=== PATIENT | female | born 1985 | race Caucasian/White ===

== ENCOUNTER 2022-01-15 11:14 | Emergency (ER) | payer OTHER, SELFPAY ==
[2022-01-15 11:24] VITALS: BP 123/77; PULSE 85; RESP 16; TEMP 36.9; O2SAT 100
--- NOTE | 2022-01-15 11:45 | ED.GENADULT ---
HPI - General Adult General Chief complaint: Skin/Abscess/Foreign Body Stated complaint: Nose Irritation Source: patient Mode of arrival: ambulatory Limitations: no limitations History of Present Illness HPI narrative: Patient presents for evaluation of irritation and swelling to the nasal mucosa of left nare. She states that over the last month she has had some rhinorrhea. She attributed this to allergies. Over the past few days she has noted swelling, discomfort and irritation to left nasal mucosa. She has a history of acne for which she takes a retinol product and dapsone. She states she had a MRSA infection in the remote past. No fever, chills, nausea, vomiting. Related Data Home Medications Medication Instructions Recorded Confirmed valacyclovir 1 gram tablet 1,000 mg PO DAILY 01/15/22 01/15/22 Allergies Allergy/AdvReac Type Severity Reaction Status Date / Time No Known Allergies Allergy Verified 01/15/22 11:20 Review of Systems Review of Systems: CONSTITUTIONAL: Denies fever, chills, or sweats. EYES: Denies visual changes, redness, or discharge. ENT: Reports swelling and discomfort to left nasal mucosa. Reports rhinorrhea. Denies congestion, sore throat, or otalgia. CARDIOVASCULAR: Denies chest pain, palpitations, or edema. RESPIRATORY: Denies cough or dyspnea. GASTROINTESTINAL: Denies abdominal pain, nausea, vomiting, or diarrhea. GENITOURINARY: Denies dysuria or hematuria. SKIN: Denies rash or itching. MUSCULOSKELETAL: Denies back pain, joint pain, or myalgia. NEUROLOGIC: Denies headache, numbness, dizziness, or weakness. PSYCHIATRIC: Denies anxiety or depression. [facility] Past Medical History Medical History Acne Surgical History Surgical History History of Family History Family History Mother Family history non-contributory Social History Social History Substance use: never Living arrangements: with family Gender identity (if verbalized by the patient): Female Sexual Orientation (if Verbalized by the Patient): Straight or Heterosexual Spiritual care concerns: No Exam Narrative: GENERAL: Well-appearing, well-nourished, and in no acute distress. HEAD: Normocephalic, atraumatic. EYES: PERRLA and EOMI. ENT: Left nasal turbinate swelling and erythema with clear rhinorrhea. No epistaxis. Mucous membranes moist. Oropharynx without tonsillar hypertrophy exudate or other lesions. Bilateral TMs pearly [place]ton nonbulging NECK: Supple. No adenopathy or masses. No carotid bruits or JVD CHEST: Clear to auscultation. No respiratory distress. No wheezes rales or rhonchi HEART: Regular rate and rhythm. No murmur heard. Normal peripheral pulses. ABDOMEN: Soft, nontender, nondistended, normal active bowel sounds. EXTREMITIES: Normal range of motion. No edema. SKIN: Warm, dry, no rash. NEURO: No focal deficits. Alert and oriented x3. PSYCH: Normal mood and affect. Course Course Emergency Course: This is a 36-year-old female who presented for evaluation of left nasal mucosal swelling, irritation and discomfort. Will tx with mupirocin given hx of MRSA. Change oral therapy from dapsone to doxycycline for time being. May resume dapsone upon completion of doxy. Follow-up outpatient for further evaluation and treatment and return for worsening symptoms. Patient in agreement with plan of care Level of Care: Express Care Visit Vital Signs Vital signs: Vital Signs Temperature 36.9 C 01/15/22 11:24 Pulse Rate 85 01/15/22 11:24 Respiratory Rate 16 01/15/22 11:24 Blood Pressure 123/77 01/15/22 11:24 Pulse Oximetry 100 01/15/22 11:24 Oxygen Delivery Room Air 01/15/22 11:24 Temperature 36.9 C 01/15/22 11:24 Pulse Rate 85
== END 2022-01-15 11:46 | disposition home or self-care (01) ==
PROVIDERS: Emergency Provider Nurse Practitioner
DX: L73.9 Follicular disorder, unspecified (principal); Z86.14 Personal history of Methicillin resistant Staphylococcus aureus infection; Z87.2 Personal history of diseases of the skin and subcutaneous tissue
CPT/HCPCS: 99203; G0463

== ENCOUNTER 2025-04-06 18:01 | Emergency (ER) | payer OTHER, SELFPAY ==
--- NOTE | ~2025-04-06 | CT_ITS ---
EXAMINATION: CT abdomen pelvis w con DATE: 04/06/2025 23:30 INDICATION: Abdominal pain, bloody diarrhea. C. difficile infection. TECHNIQUE: Computed tomography (CT) of the abdomen and pelvis was performed with 100 cc Omnipaque 350 intravenous contrast. The dose-length product was 175.34 mGy-cm. Automated exposure control and iterative reconstruction technique were employed. COMPARISON: None. FINDINGS: Heart size normal. No significant pleural or pericardial effusion. Fatty infiltration of the liver. The spleen, pancreas, adrenal glands and kidneys are unremarkable. Gallbladder is present. No significant vascular abnormality. No lymphadenopathy. There is extensive mucosal thickening of the colon, predominantly affecting the transverse, descending, sigmoid colon and rectum. Trace free fluid in the pelvis. No lymphadenopathy. No acute osseous abnormality. IMPRESSION: 1. Moderate mucosal thickening of the colon, consistent with colitis. Findings compatible with known C. Difficile infection. Reviewed, dictated and finalized at location O.
[2025-04-06 18:29] VITALS: BP 119/69; PULSE 83; RESP 20; TEMP 36.9; O2SAT 100
[2025-04-06 21:57] LABS: BEDSIDEPREGUCG Negative (Negative)
[2025-04-06 21:59] LABS: Hematocrit 38.5 % (37.0-47.0); Hemoglobin 12.9 g/dL (12.0-15.0); Immature Granulocyte Percent A 0.3 % (0-0.5); Lymphocytes Absolute Auto 1.05 K/mm3 (0.9-3.2); Mean Corpuscular HGB Conc 33.5 g/dl (32-36); Mean Corpuscular Hemoglobin 29.7 pg (26-34); Mean Corpuscular Volume 88.7 fl (80-100); Nucleated Red Blood Cells Absolute Auto 0.000 K/mm3 (0.0-0.012); Nucleated Red Blood Cells Perc 0.0 % (0.0-0.2); Platelet Count Result 285 k/mm3 (150-375); Red Blood Count 4.34 M/mm3 (4.2-5.4); White Blood Count 7.8 K/mm3 (4.5-10.0)
[2025-04-06 22:10] LABS: INR 1.0; Partial Thromboplastin Time 28.5 Seconds (22.3-36.8); Prothrombin Time 13.3 Seconds (11.1-14.7)
[2025-04-06 22:11] LABS: Add Urine Microscopic? NO; Appearance Urine Clear (Clear); Glucose Urine UA Negative (Negative); Leukocyte Esterase Ur Negative LEU/UL (Negative); Nitrate Urine Negative (Negative); Specific Grav Ur 1.027 (1.001-1.035)
[2025-04-06 22:13] LABS: Alanine Aminotransferase 18 U/L (6-35); Albumin Level 5.0 g/dL (3.5-5.1); Alkaline Phosphatase 57 U/L (38-126); Anion Gap 12 mmol/L (4-12); Aspartate Amino Transferase 30 U/L (14-36); Bilirubin,Total 0.4 mg/dL (0.2-1.3); Blood Urea Nitrogen 12 mg/dL (7-17); Calcium 9.3 mg/dL (8.4-10.2); Carbon Dioxide 23 mmol/L (22-30); Chloride 99 mmol/L (98-107); Estimated CRCL calculation 86 ml/min; Estimated Glomerular Filt Rate > 60; Glucose 116 mg/dL (65-110); Potassium 3.3 mmol/L (3.4-5.0); Sodium 134 mmol/L (137-145); Total Protein 9.0 g/dL (6.3-8.2)
[2025-04-06 22:58] VITALS: PULSE 102; RESP 20
[2025-04-06 23:00] VITALS: PULSE 98; RESP 16; O2SAT 100
--- NOTE | 2025-04-06 23:10 | ED.ABDPAIN ---
HPI - Abdominal Pain General Chief Complaint: Abdominal Pain Stated Complaint: abdominal pain/cramping Time Seen by Provider: 04/06/25 21:40 History of Present Illness HPI narrative: 39-year-old female presenting to the emergency depart with cramping lower abdominal pain associated with diarrhea that turned bloody this evening. At approximately 2:00 p.m. she started having lower abdominal cramps and had the urge to go the bathroom where she had bowel movements that were normal and has started becoming liquidy. She then had loose bowel movements continuously up to 20 times and then started having bright red rectal bleeding with some specks of blood clots. No pain when she is not using the bathroom but when she gets abdominal cramps she knows she has to the bathroom and have further diarrhea. Mild nauseousness but no vomiting. Recently completed a course of Bactrim 7 days for a surgical site infection she had that was mild and from a rectus repair from her previous scar several months ago. No other antibiotic use. She did have close contact with the C diff positive patient several days ago prior to the symptom onset. No fever chills but states that when she had C abdominal cramping she does feel clammy. No headache, vision changes, chest pain, shortness a breath. Did endorse eating a potentially old sandwich earlier today 2 hours prior to symptom onset as well. Related Data Home Medications ?Medication ?Instructions ?Recorded ?Confirmed ?Last Taken ?Type valacyclovir 1 gram tablet 1,000 mg PO DAILY 01/15/22 01/15/22 Unknown History Allergies Allergy/AdvReac Type Severity Reaction Status Date / Time oxycodone AdvReac Mild Nausea and Verified 04/06/25 18:31 Vomiting Review of Systems Review of Systems: As reviewed above in HPI [facility] Past Medical History Medical History Acne Surgical History Surgical History History of Family History Family History Mother Family history non-contributory Social History Social History Substance use: never Living arrangements: with family Gender identity (if verbalized by the patient): Female Sexual Orientation (if Verbalized by the Patient): Straight or Heterosexual Spiritual care concerns: No Exam Narrative: GENERAL: [Well-appearing, well-nourished, and in no acute distress.] HEAD: [Normocephalic, atraumatic.] EYES: [PERRLA and EOMI.] ENT: Nares clear, no rhinorrhea or epistaxis. Mucous membranes moist. NECK: Supple. CHEST: [Clear to auscultation. No respiratory distress.] HEART: [Regular rate and rhythm]. No murmur heard. [Normal peripheral pulses.] ABDOMEN: [Soft, nondistended], [nontender], [No rigidity or guarding] EXTREMITIES: Normal range of motion. [No edema.] SKIN: Warm, dry, no rash. NEURO: [No focal deficits]. Alert and oriented [x3.] PSYCH: [Normal mood and affect.] Course Vital Signs Vital signs: Vital Signs Temperature 36.9 C 04/06/25 18:29 Pulse Rate 83 04/06/25 18:29 Respiratory Rate 20 04/06/25 18:29 Blood Pressure 119/69 04/06/25 18:29 Pulse Oximetry 100 04/06/25 18:29 Temperature 36.9 C 04/06/25 18:29 Pulse Rate 81 04/07/25 01:01 Respiratory Rate 9 L 04/07/25 01:01 Blood Pressure 112/77 04/07/25 01:01 Pulse Oximetry 100 04/07/25 01:01 MDM - Abdominal Pain MDM Narrative Medical decision making narrative: 39-year-old female presenting to the emergency depart with cramping lower abdominal pain associated with diarrhea that turned bloody this evening. At approximately 2:00 p.m. she started having lower abdominal cramps and had the urge to go the bathroom where she had bowel movements that were normal and has started becoming liquidy. She then had loose bowel movements continuously up to 20 times and then started having bright red rectal bleeding with some specks of blood clots. No pain when she is not using the bathroom but when she gets abdominal cramps she knows she has to the bathroom and have further diarrhea. Mild nauseousness but no vomiting. Recently completed a course of Bactrim 7 days for a surgical site infection she had that was mild and from a rectus repair from her previous scar several months ago. No other antibiotic use. She did have close contact with the C diff positive patient several days ago prior to the symptom onset. No fever chills but states that when she had C abdominal cramping she does feel clammy. No headache, vision changes, chest pain, shortness a breath. Did endorse eating a potentially old sandwich earlier today 2 hours prior to symptom onset as well. Patient is overall well-appearing and not in any acute distress. No fever, chills, hypoxemia blood pressure concerns. She has a soft nontender nondistended abdomen. Symptoms consistent with bacterial versus viral gastroenteritis, colitis, C difficile, electrolyte imbalances, internal hemorrhoid, less likely abscess formation. CT scan with contrast obtained as well as basic laboratory studies. Stool culture and stool sample sent for C diff and ova and parasite testing. Patient given Zofran and a L of fluids. Placed on satellite project site monitor. CT scan shows mild colonic thickening consistent with colitis. Patient's laboratory studies are unremarkable. C diff panel negative. Urine stool studies pending and send out tests. Empirically will start treatment of her infectious colitis given that she is having bloody diarrhea with antibiotics. Started on ciprofloxacin and Flagyl for next 7 days. Given Bentyl and Zofran as needed and encouraged to follow-up with her primary care provider or return with any urgent or emergent concerns. Patient's questions were answered she was safe for discharge. Medical Records Attestation: I reviewed the patient's medical records. Lab Data Attestation: I reviewed the patient's lab results. 04/06/25 21:52 04/06/25 21:52 Labs: Lab Results 04/06/25 04/06/25 04/06/25 Range/Units 21:52 21:55 23:20 WBC 7.8 (4.5-10.0) K/mm3 RBC 4.34 (4.2-5.4) M/mm3 Hgb 12.9 (12.0-15.0) g/dL Hct 38.5 (37.0-47.0) % MCV 88.7 (80-100) fl MCH 29.7 (26-34) pg MCHC 33.5 (32-36) g/dl RDW 12.3 (11.5-14.5) % Plt Count 285 (150-375) k/mm3 MPV 9.1 (7.4-10.4) fl Immature Gran % (Auto) 0.3 (0-0.5) % Neut % (Auto) 82.4 H (45.5-73.1) % Lymph % (Auto) 13.5 L (18.3-44.2) % [place] % (Auto) 3.5 (2.6-8.5) % Eos % (Auto) 0.0 (0-4.4) % Baso % (Auto) 0.3 (0.2-1.2) % Lymph # (Auto) 1.05 (0.9-3.2) K/mm3 [place] # (Auto) 0.3 (0.1-0.6) K/mm3 Eos # (Auto) 0.0 (0-0.3) K/mm3 Baso # (Auto) 0.0 (0.0-0.1) K/mm3 Abs Immat Gran (auto) 0.02 (0.00-0.031) K/mm3 Absolute Neuts (auto) 6.4 (1.3-6.7) K/mm3 Absolute Nucleated RBC 0.000 (0.0-0.012) K/mm3 Nucleated RBC % 0.0 (0.0-0.2) % PT 13.3 (11.1-14.7) Seconds INR 1.0 APTT 28.5 (22.3-36.8) Seconds Sodium 134 L (137-145) mmol/L Potassium 3.3 L (3.4-5.0) mmol/L Chloride 99 (98-107) mmol/L Carbon Dioxide 23 (22-30) mmol/L Anion Gap 12 (4-12) mmol/L BUN 12 (7-17) mg/dL Creatinine 0.55 L (0.7-1.0) mg/dL Estim Creat Clear Calc 86 ml/min Estimated GFR > 60 (59 - ) Glucose 116 H (65-110) mg/dL Calcium 9.3 (8.4-10.2) mg/dL Total Bilirubin 0.4 (0.2-1.3) mg/dL AST 30 (14-36) U/L ALT 18 (6-35) U/L Alkaline Phosphatase 57 (38-126) U/L Total Protein 9.0 H (6.3-8.2) g/dL Albumin 5.0 (3.5-5.1) g/dL Urine Color Yellow (Yellow) Urine Appearance Clear (Clear) Urine pH 5.0 (5.0-9.0) Ur Specific [place] 1.027 (1.001-1.035) Urine Protein Negative (Negative) mg/dL Urine Glucose (UA) Negative (Negative) mg/dL Urine Ketones 4+ H (Negative) mg/dL Ur Blood (Man) Negative (Negative) Urine Nitrate Negative (Negative) Urine Bilirubin Negative (Negative) Urine Urobilinogen 0.2 (<2.0) mg/dL Leukocyte Esterase Rfl Negative (Negative) LUIS ANTONIO/UL POC Urine HCG, Qual Negative (Negative) C. difficile (PCR) Negative (NEGATIVE) Stool Norovirus GI (PCR) Pending Stool Norovirus GII (PCR) Pending Blood Type A Positive Antibody Screen Negative Imaging Data Attestation: I personally reviewed and interpreted this imaging study as follows: My impression: Colitis Discharge Plan Discharge Clinical Impression: Infectious colitis, Intestinal infection due to bacteria causing bloody diarrhea Patient Disposition: Home Condition: Stable Instructions: Antibiotic Form, Colitis (ED) Additional Instructions: CT scan shows thickened colon wall consistent with colitis. Laboratory studies otherwise are all reassuring. Given the bloody diarrhea this is most likely infectious colitis secondary to a bacterial illness. We have sent stool studies off which will take some time to come back for definitive results. In the meantime we will empirically treat this with 2 different antibiotics that have good coverage of GI fanta and GI bacteria. Take the antibiotics for the next 7 days. We have also prescribe some dicyclomine for abdominal spasming and Zofran as needed. Return with any signs of profound dehydration, worsening pain, worsening diarrhea or any other issues. Follow-up with regular primary care provider otherwise. Patient Language: Burkinan Prescriptions: New ciprofloxacin HCl [Cipro] 500 mg tablet 500 mg PO Q12H 7 Days Qty: 14 0RF metronidazole 500 mg tablet 500 mg PO Q12H 7 Days Qty: 14 0RF dicyclomine 20 mg tablet 20 mg PO TID PRN (Reason: abdominal pain) Qty: 14 0RF ondansetron 4 mg tablet,disintegrating 4 mg PO Q8H PRN (Reason: nausea and vomiting) Qty: 14 0RF No Action valacyclovir 1 gram tablet 1,000 mg PO DAILY doxycycline hyclate 100 mg capsule 100 mg PO BID Qty: 20 0RF mupirocin 2 % ointment 1 applic topical TID Qty: 22 0RF Rx Instructions: apply to nasal mucosa TID Follow-up/Referrals: PHYSICIAN,[employer] [Primary Care Provider, Internal Medicine] Time of Disposition: 02:02
[2025-04-06 23:40] VITALS: BP 111/81; PULSE 91; RESP 10; O2SAT 100
[2025-04-06] MEDS: ONDANSETRON INJ 4 MG/2 ML VIAL IV PUSH (23:40)
[2025-04-06] MEDS: LACTATED RINGERS 1,000 ML 999 ML IV CONT (23:40)
[2025-04-06] MEDS: POTASSIUM CHLORIDE 20 MEQ ER TABLET 40 MEQ PO (23:41)
[2025-04-07] VITALS: BP 117/84; PULSE 80; RESP 12; O2SAT 100
[2025-04-07 00:27] VITALS: BP 124/77; PULSE 74; RESP 15; O2SAT 100
[2025-04-07 00:31] VITALS: BP 115/103; PULSE 82; RESP 12; O2SAT 100
[2025-04-07 00:32] LABS: Toxigenic C. Diff NEGATIVE (NEGATIVE)
[2025-04-07 01:01] VITALS: BP 112/77; PULSE 81; RESP 9; O2SAT 100
[2025-04-07] MEDS: CIPROFLOXACIN 500 MG TAB PO (02:13)
== END 2025-04-07 02:19 | disposition home or self-care (01) ==
PROVIDERS: Physician Assistant; Emergency Provider Student in an Organized Health Care Education/Training Program
DX: A09 Infectious gastroenteritis and colitis, unspecified (principal); A04.9 Bacterial intestinal infection, unspecified
CPT/HCPCS: 36415; 74177; 80053; 81003; 81025; 85025; 85610; 85730; 86850; 86900; 86901; 87045; 87046; 87427; 87493; 87798; 96361; 96374; 99284; A9270; J2405; J7120; Q9967